=== PATIENT | female | born 2000 | race Caucasian/White ===

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

== ENCOUNTER 2021-03-18 06:51 | Emergency (ER) | payer OTHER, SELFPAY ==
--- NOTE | 2021-03-18 | ECG_ITS ---
Test Reason : cp Blood Pressure : / mmHG Vent. Rate : 071 BPM Atrial Rate : 071 BPM P-R Int : 154 ms QRS Dur : 082 ms QT Int : 394 ms P-R-T Axes : 059 067 048 degrees QTc Int : 428 ms Normal sinus rhythm RSR' or QR pattern in V1 suggests right ventricular conduction delay Otherwise normal ECG No previous ECGs available Referred By: Generic ED Physician Electronically Signed By:JIMMY RECINOS MD
--- NOTE | ~2021-03-18 | XR_ITS ---
EXAMINATION: XR CHEST CLINICAL INFORMATION: Chest pain COMPARISON: None TECHNIQUE: 2 views of the chest were obtained. FINDINGS: No significant abnormality is noted involving the heart, lungs, mediastinum, bony thorax or soft tissues. XR/XR chest 2V IMPRESSION: Unremarkable examination.
--- NOTE | 2021-03-18 07:07 | ED_ITS ---
HPI - Chest Pain General Chief Complaint: Chest Pain Stated Complaint: chest pain Time Seen by Provider: 03/18/21 07:06 Source: patient Mode of arrival: ambulatory Limitations: no limitations History of Present Illness HPI narrative: This is a 21 years old female with no past medical history presented to the emergency department complaining of a left-sided chest pain which started 2 days ago today's worse. The pain is described as a sharp pleuritic in nature without radiation localized in the left precordium. Denies any fevers chills shortness of breath. She was at work today pain got worse and she decided to come for evaluation complaint: chest pain Onset (ago): day(s) (2) Timing of current episode: constant Prior episodes: No Onset: during rest Pain location: substernal and left chest Pain radiation: none Severity: moderate Quality: sharp Relieving factors: nothing Exacerbating factors: inspiration Risk Factors Coronary artery disease risk factors: none Related Data On Oral Contraceptives: No Allergies Allergy/AdvReac Type Severity Reaction Status Date / Time No Known Allergies Allergy Verified 04/12/20 10:12 Review of Systems Review of Systems: Yes all other systems are reviewed and are negative Constitutional: Constitutional: Reports no additional constitutional complaints ENT: Denies vertigo and Denies dizziness Cardiovascular: Cardiovascular: Denies leg edema and Denies lightheadedness Respiratory: Respiratory: Denies chest congestion, Denies cough, Denies hemoptysis and Reports pain on inspiration Gastrointestinal: Gastrointestinal: Denies coffee ground emesis and Denies vomiting Neurologic: Reports system reviewed and no additional complaints, except as documented, Denies vertigo and Denies dizziness PMFSH Past Medical History Attestation statement: The following information was validated with the patient. Medical History (Updated 03/18/21 @ 07:14 by Maurizio Gonzales MD) Asthma Migraine with aura Surgical History H/O breast surgery Social History Social History Alcohol intake: never Patient Tobacco Use Status: Never used Tobacco Use of substances other than those prescribed or required for medical reasons: No Advance Directives: No Advance Directives Information Provided: No Physical Exam Vital Signs: Vital Signs: Last Vital Signs Pulse 76 03/18/21 07:10 Resp 14 03/18/21 07:10 BP 121/75 03/18/21 07:10 Pulse Ox 96 03/18/21 07:10 Body Mass Index 23.6 Const: General: cooperative, healthy appearing, comfortable, no acute distress and well developed Nutritional Appearance: average body habitus Orientat ion/consciousness: patient oriented x3 Limitations: no limitations HENMT: Head: Yes normal to inspection Face and sinus: Yes normal facial exam Mouth: Normal oral and palatal mucosa present Neck: Neck: Yes normal visual inspection, Yes full ROM and Yes no lymphadenopathy Thyroid: Thyroid normal Chest: Chest palpation & inspection: normal inspection of the chest Resp: Effort & Inspection: normal respiratory effort Auscultation: clear to auscultation bilaterally Cardio: Jugular venous distension: no JVD Palpation: normal PMI Rhythm: regular rhythm Heart sounds: S1 normal heart sound present and S2 normal heart sound present GI: Inspection: Yes normal to inspection Palpation (GI): Soft to palpation Skin: General skin exam: no rashes or lesions noted Neuro: General: patient oriented x3 Course Course Course Narrative: This is a low risk patient she has a negative chest x-ray, negative D-dimer and negative troponin she can be discharged home and follow-up with PCP her pain is most likely musculoskeletal MDM - Chest Pain Lab Data Result diagrams: 03/18/21 07:31 03/18/21 07:31 Labs: Lab Results 03/18/21 03/18/21 03/18/21 Range/Units 07:31 07:31 07:31 WBC 8.5 (4.8-10.8) X10*3/uL RBC 4.32 (4.20-5.50) X10*6/uL Hgb 12.6 (12.0-16.0) g/dl Hct 37.5 (37-47) % MCV 86.8 (80-98) fL MCH 29.2 (27.0-33.0) pg MCHC 33.6 (31.0-35.0) g/dl RDW 11.9 (11.0-16.0) % Plt Count 261 (160-400) X10*3/uL MPV 10.3 (9.4-12.3) fL Immature Gran % (Auto) 0.1 (0.0-0.4) % Neut % (Auto) 41.8 L (45-73) % Lymph % (Auto) 48.1 H (20-40) % [place] % (Auto) 7.3 (2-11) % Eos % (Auto) 2.5 (0-4) % Baso % (Auto) 0.2 (0-2) % Lymph # (Auto) 4.1 (1.2-4.9) X10*3/uL [place] # (Auto) 0.6 (0.1-1.2) X10*3/uL Eos # (Auto) 0.2 (0.0-0.4) X10*3/uL Baso # (Auto) 0.0 (0.0-0.2) X10*3/uL Abs Immat Gran (auto) 0.01 (0.00-0.03) X10*3/uL Absolute Neuts (auto) 3.6 (2.0-8.3) X10*3/uL Absolute Nucleated RBC 0.000 (0.0-0.012) X10*3/uL Nucleated RBC % (auto) 0.0 (0.0-0.2) /100WBC D-Dimer < 200 NG/ML Sodium 139 (135-145) mmol/L Potassium 3.9 (3.3-5.1) mmol/L Chloride 106 (96-108) mmol/L Carbon Dioxide 25 (22-29) mmol/L Anion Gap 12 (12-20) BUN 15 (9-16) mg/dL Creatinine 0.76 (0.5-1.4) mg/dL Estim Creat Clear Calc 89.1 Estimated GFR > 60 Random Glucose 99 (60-115) mg/dL Calcium 9.7 (8.4-10.2) mg/dL Total Bilirubin 0.2 (0.0-1.0) mg/dL AST 13 (5-31) U/L ALT 10 (0-31) U/L Alkaline Phosphatase 91 (39-117) U/L Troponin I High Sens (<3.5-17.0) ng/L Total Protein 7.6 (6.5-8.0) g/dL Albumin 4.4 (3.5-5.0) g/dL 03/18/21 Range/Units 07:31 WBC (4.8-10.8) X10*3/uL RBC (4.20-5.50) X10*6/uL Hgb (12.0-16.0) g/dl Hct (37-47) % MCV (80-98) fL MCH (27.0-33.0) pg MCHC (31.0-35.0) g/dl RDW (11.0-16.0) % Plt Count (160-400) X10*3/uL MPV (9.4-12.3) fL Immature Gran % (Auto) (0.0-0.4) % Neut % (Auto) (45-73) % Lymph % (Auto) (20-40) % [place] % (Auto) (2-11) % Eos % (Auto) (0-4) % Baso % (Auto) (0-2) % Lymph # (Auto) (1.2-4.9) X10*3/uL [place] # (Auto) (0.1-1.2) X10*3/uL Eos # (Auto) (0.0-0.4) X10*3/uL Baso # (Auto) (0.0-0.2) X10*3/uL Abs Immat Gran (auto) (0.00-0.03) X10*3/uL Absolute Neuts (auto) (2.0-8.3) X10*3/uL Absolute Nucleated RBC (0.0-0.012) X10*3/uL Nucleated RBC % (auto) (0.0-0.2) /100WBC D-Dimer NG/ML Sodium (135-145) mmol/L Potassium (3.3-5.1) mmol/L Chloride (96-108) mmol/L Carbon Dioxide (22-29) mmol/L Anion Gap (12-20) BUN (9-16) mg/dL Creatinine (0.5-1.4) mg/dL Estim Creat Clear Calc Estimated GFR Random Glucose (60-115) mg/dL Calcium (8.4-10.2) mg/dL Total Bilirubin (0.0-1.0) mg/dL AST (5-31) U/L ALT (0-31) U/L Alkaline Phosphatase (39-117) U/L Troponin I High Sens < 3.5 (<3.5-17.0) ng/L Total Protein (6.5-8.0) g/dL Albumin (3.5-5.0) g/dL Imaging Data Chest x-ray: Radiologist's impression: Accession Number(s): [id number] cc: Maurizio Gonzales MD~ EXAMINATION: XR CHEST CLINICAL INFORMATION: Chest pain COMPARISON: None TECHNIQUE: 2 views of the chest were obtained. FINDINGS: No significant abnormality is noted involving the heart, lungs, mediastinum, bony thorax or soft tissues. XR/XR chest 2V IMPRESSION: Unremarkable examination. Dictated By: Shazia Cortes MD Signed By: <Electronically signed by Shazia Cortes MD in OV> 03/18/21 0756 ECG Data ECG #1: Attestation: I personally reviewed and interpreted this ECG as follows: ECG interpretation date: 03/18/21 ECG interpretation time: 07:12 Prior ECG tracings: available for review Pacemaker model: Normal sinus rhythm a rate [address]-T segment Discharge Plan Discharge Clinical Impression: Chest pain Patient Disposition: Home, Self-Care Instructions: Chest Pain (ED) Additional Instructions: take ibuprophen as needed follow up with your primary care doctor Referrals: Physician,Unknown J [Primary Care Provider] - 2 days Stand Alone Forms: Work/School Release Interventions: ED Discharge Assessment Last Done: 03/18/21 08:28 Discharge Date/Time: 03/18/21 08:30
[2021-03-18 07:10] VITALS: BP 121/75; PULSE 76; RESP 14; O2SAT 96; BMI 23.6
[2021-03-18] MEDS: Ibuprofen 600 MG TABLET PO (07:24)
[2021-03-18 07:48] LABS: MANUAL DIFF FLAG NO
[2021-03-18 07:56] LABS: Basophils Percent Auto 0.2 % (0-2); Eosinophils Absolute Auto 0.2 X10*3/uL (0.0-0.4); Eosinophils Percent Auto 2.5 % (0-4); Hematocrit 37.5 % (37-47); Hemoglobin 12.6 g/dl (12.0-16.0); Imm Gran Abs Auto 0.01 X10*3/uL (0.00-0.03); Imm Gran Pct Auto 0.1 % (0.0-0.4); Lymphocytes Absolute Auto 4.1 X10*3/uL (1.2-4.9); Lymphocytes Percent Auto 48.1 % (20-40); Mean Corpuscular HGB Conc 33.6 g/dl (31.0-35.0); Mean Corpuscular Hemoglobin 29.2 pg (27.0-33.0); Mean Corpuscular Volume 86.8 fL (80-98); Mean Platelet Volume 10.3 fL (9.4-12.3); Monocytes Absolute Auto 0.6 X10*3/uL (0.1-1.2); Monocytes Percent Auto 7.3 % (2-11); Neutrophils Absolute Auto 3.6 X10*3/uL (2.0-8.3); Neutrophils Percent Auto 41.8 % (45-73); Platelet Count 261 X10*3/uL (160-400); Red Blood Count 4.32 X10*6/uL (4.20-5.50); Red Cell Distribution Width 11.9 % (11.0-16.0); White Blood Count 8.5 X10*3/uL (4.8-10.8)
[2021-03-18 07:59] LABS: D Dimer < 200 NG/ML
[2021-03-18 08:15] LABS: Alanine Aminotransferase 10 U/L (0-31); Albumin Level 4.4 g/dL (3.5-5.0); Alkaline Phosphatase 91 U/L (39-117); Anion Gap 12 (12-20); Aspartate Amino Transferase 13 U/L (5-31); Bilirubin Total 0.2 mg/dL (0.0-1.0); Blood Urea Nitrogen 15 mg/dL (9-16); Calcium 9.7 mg/dL (8.4-10.2); Carbon Dioxide 25 mmol/L (22-29); Chloride 106 mmol/L (96-108); Creatinine Clr Calc Pharmacy 89.1; Estimated Glomerular Filt Rate > 60; Glucose Random 99 mg/dL (60-115); Potassium 3.9 mmol/L (3.3-5.1); Sodium 139 mmol/L (135-145); Total Protein 7.6 g/dL (6.5-8.0)
[2021-03-18 08:19] LABS: Troponin-I High Sensitivity < 3.5 ng/L (<3.5-17.0)
== END 2021-03-18 08:30 | disposition home or self-care (01) ==
PROVIDERS: Emergency Provider Emergency Medicine
DX: R07.89 Other chest pain (principal); R06.02 Shortness of breath; Z79.899 Other long term (current) drug therapy
CPT/HCPCS: 36415; 71046; 80053; 84484; 85025; 85379; 93005; 99283; 99284

== ENCOUNTER 2021-07-12 19:59 | Emergency (ER) | payer OTHER, SELFPAY ==
--- NOTE | ~2021-07-12 | XR_ITS ---
EXAMINATION: XR CHEST CLINICAL INFORMATION: Shortness of breath. COMPARISON: Chest radiograph dated from 03/18/2021. TECHNIQUE: 2 views of the chest were obtained. FINDINGS: No significant abnormality is noted involving the heart, lungs, mediastinum, bony thorax or soft tissues. XR/XR chest 2V IMPRESSION: Unremarkable examination.
[2021-07-12 20:18] VITALS: BP 131/77; PULSE 73; RESP 18; TEMP 36.7; O2SAT 98; BMI 23.6
[2021-07-12] MEDS: Acetaminophen 325 MG TABLET 650 MG PO (20:27)
== END 2021-07-12 22:22 | disposition left against medical advice (07) ==
PROVIDERS: Emergency Provider Emergency Medicine
DX: R06.02 Shortness of breath (principal); R42 Dizziness and giddiness
CPT/HCPCS: 71046; 99283

== ENCOUNTER 2021-11-06 08:19 | Emergency (ER) | payer OTHER, SELFPAY ==
--- NOTE | ~2021-11-06 | US_ITS ---
EXAMINATION: US ABDOMEN LIMITED CLINICAL INFORMATION: Right upper quadrant pain. COMPARISON: None TECHNIQUE: Real-time imaging of the right upper quadrant abdominal viscera. FINDINGS: PANCREAS: Normal. LIVER: Normal. The liver is normal in size. The liver contour is normal. Parenchymal echogenicity is normal. No focal hepatic lesion. There is no intrahepatic biliary duct dilatation seen. GALLBLADDER: Normal. The gallbladder is physiologically distended without evidence of stones, sludge, polyps, wall thickening or pericholecystic fluid. COMMON BILE DUCT: Normal in caliber measuring 0.2 cm in diameter. RIGHT KIDNEY: Normal. No hydronephrosis. No renal calculi or focal parenchymal lesions. The kidney measures 10.3 cm in maximum dimension. FREE FLUID: None. US/US abdomen limited IMPRESSION: Unremarkable right upper quadrant ultrasound.
[2021-11-06 09:08] LABS: MANUAL DIFF FLAG NO
[2021-11-06 09:09] LABS: Basophils Percent Auto 0.4 % (0-2); Eosinophils Absolute Auto 0.2 X10*3/uL (0.0-0.4); Eosinophils Percent Auto 2.1 % (0-4); Hematocrit 37.5 % (37.0-47.0); Hemoglobin 12.5 g/dl (12.0-16.0); Imm Gran Abs Auto 0.02 X10*3/uL (0.00-0.03); Imm Gran Pct Auto 0.3 % (0.0-0.4); Lymphocytes Absolute Auto 2.1 X10*3/uL (1.2-4.9); Lymphocytes Percent Auto 26.7 % (20-40); Mean Corpuscular HGB Conc 33.3 g/dl (31.0-35.0); Mean Corpuscular Hemoglobin 28.7 pg (27.0-33.0); Mean Platelet Volume 10.7 fL (9.4-12.3); Monocytes Absolute Auto 0.6 X10*3/uL (0.1-1.2); Monocytes Percent Auto 7.1 % (2-11); Neutrophils Absolute Auto 4.9 x10*3/uL (2.0-8.3); Neutrophils Percent Auto 63.4 % (45-73); Platelet Count 267 X10*3/uL (160-400); Red Blood Count 4.36 X10*6/uL (4.20-5.50); Red Cell Distribution Width 11.9 % (11.0-16.0); White Blood Count 7.7 X10*3/uL (4.8-10.8)
--- NOTE | 2021-11-06 09:13 | ED_ITS ---
HPI - Abdominal Pain General Chief Complaint: Abdominal Pain Stated Complaint: Upper abd pain Time Seen by Provider: 11/06/21 08:44 Source: patient Mode of arrival: ambulatory Limitations: no limitations History of Present Illness MD elicited complaint: abdominal pain Pertinent past history: none Onset (ago): week(s) (2) Pain Consistency: intermittent Location: epigastric and RUQ Severity: moderate Quality: aching Radiation: none Exacerbating factors: eating Relieving factors: nothing Context: other (started after trying milk ensure diet) Associated symptoms: nausea and vomiting Related Data Previous Rx's Medication Instructions Recorded omeprazole 20 mg capsule,delayed 20 mg PO BID 2 weeks #28 caps 11/06/21 release ondansetron 4 mg disintegrating 4 mg PO Q8H PRN nausea and 11/06/21 tablet vomiting #20 tabs Allergies Allergy/AdvReac Type Severity Reaction Status Date / Time No Known Allergies Allergy Verified 07/12/21 20:18 Review of Systems Review of Systems Constitutional : No Weight loss, No Fever, No Chills ENT/Mouth : No sore throat, No Rhinorrhea Eyes: No Swelling, No Redness Cardiovascular : No Chest Pain, No SOB, NoEdema Respiratory : No Cough, No Sputum, No Wheezing Gastrointestinal : Positive Nausea, Positive Vomiting, no Diarrhea, positive abdominal Pain, No Hematochezia, No Melena Genitourinary : No Dysuria, No Urinary Frequency, No Hematuria, No Urgency Musculoskeletal : No joint pain, No Myalgias, No Joint Swelling Skin : No Skin Lesions, No rash Neuro : No Weakness, No Numbness, No Dizziness, No Headache Psych : No Anxiety/Panic, No Depression Heme/Lymph: No Bruising, No Lymphadenopathy Endocrine : No Polyuria, No Polydipsia All other systems reviewed and are negative. [facility] Past Medical History Attestation statement: The following information was validated with the patient. Medical History Asthma Migraine with aura Surgical History H/O breast surgery Social History Social History Alcohol intake: never Patient Tobacco Use Status: Never used Tobacco Use of substances other than those prescribed or required for medical reasons: No Advance Directives: No Advance Directives Information Provided: No Physical Exam ED Vital Signs: Vital Signs - 24 hr 11/06/21 09:14 11/06/21 09:15 11/06/21 09:21 Temperature 98.4 F 97.9 F Pulse Rate 90 72 72 Respiratory Rate 18 16 16 Blood Pressure 98/66 133/75 130/77 Pulse Oximetry 95 99 100 Oxygen Delivery Method Room Air Room Air Room Air BMI result Body Mass Index 25.4 Appearance: Alert. Oriented X3. No acute distress. Eyes: Pupils equal, round and reactive to light. ENT: Pharynx normal. Neck: Normal inspection. Neck supple. CVS: Normal heart rate and rhythm. Pulses normal. Respiratory: No respiratory distress. Breath sounds normal. Abdomen: Soft and mild epigastric RUQ pain but no matson's sign Skin: Skin warm and dry. Normal skin color. Normal skin turgor. Extremities: No lower extremity edema. No calf ttp Neuro: Oriented X 3. No motor deficit. No sensory deficit. Course Course Course Narrative: not toxic, no vomiting stable for DC MDM - Abdominal Pain MDM Narrative Medical decision making narrative: 21 yo female with no PMH here with c/o upper abdominal pain and vomiting post ensure diet - at this time will need labs, US of GB - IVF and IV medications - dispo per results and findings possible gastritis vs IBS. Lab Data Result diagrams: 11/06/21 09:03 11/06/21 09:03 Labs: Lab Results 11/06/21 11/06/21 11/06/21 Range/Units 09:03 09:03 09:09 WBC 7.7 (4.8-10.8) X10*3/uL RBC 4.36 (4.20-5.50) X10*6/uL Hgb 12.5 (12.0-16.0) g/dl Hct 37.5 (37.0-47.0) % MCV 86.0 (80.0-98.0) fL MCH 28.7 (27.0-33.0) pg MCHC 33.3 (31.0-35.0) g/dl RDW 11.9 (11.0-16.0) % Plt Count 267 (160-400) X10*3/uL MPV 10.7 (9.4-12.3) fL Immature Gran % (Auto) 0.3 (0.0-0.4) % Neut % (Auto) 63.4 (45-73) % Lymph % (Auto) 26.7 (20-40) % [place] % (Auto) 7.1 (2-11) % Eos % (Auto) 2.1 (0-4) % Baso % (Auto) 0.4 (0-2) % Lymph # (Auto) 2.1 (1.2-4.9) X10*3/uL [place] # (Auto) 0.6 (0.1-1.2) X10*3/uL Eos # (Auto) 0.2 (0.0-0.4) X10*3/uL Baso # (Auto) 0.0 (0.0-0.2) X10*3/uL Abs Immat Gran (auto) 0.02 (0.00-0.03) X10*3/uL Absolute Neuts (auto) 4.9 (2.0-8.3) x10*3/uL Absolute Nucleated RBC 0.000 (0.0-0.012) X10*3/uL Nucleated RBC % (auto) 0.0 (0.0-0.2) /100WBC Sodium 139 (135-145) mmol/L Potassium 4.2 (3.3-5.1) mmol/L Chloride 108 (96-108) mmol/L Carbon Dioxide 23 (22-29) mmol/L Anion Gap 12 (12-20) BUN 10 (9-16) mg/dL Creatinine 0.76 (0.5-1.4) mg/dL Estim Creat Clear Calc 94.8 Estimated GFR > 60 Random Glucose 92 (60-115) mg/dL Calcium 9.3 (8.4-10.2) mg/dL Magnesium 1.9 (1.6-2.6) mg/dL Total Bilirubin 0.2 (0.0-1.0) mg/dL Direct Bilirubin < 0.2 (0.0-0.5) mg/dL AST 13 (5-31) U/L ALT 13 (0-31) U/L Alkaline Phosphatase 86 (39-117) U/L Total Protein 7.5 (6.5-8.0) g/dL Albumin 4.2 (3.5-5.0) g/dL Lipase 15 (8-78) U/L Urine Color YELLOW Urine Appearance HAZY Urine pH 6.5 (5.0-8.0) Ur Specific [place] 1.020 (1.005-1.025) Urine Protein NEG (NEG-TRACE) MG/DL Urine Glucose (UA) NEG (NEG) MG/DL Urine Ketones NEG (NEG) MG/DL Urine Blood 2+ H (NEG) Urine Nitrite NEG (NEG) Ur Leukocyte Esterase 1+ H (NEG) Urine RBC 1-4 (0) /HPF Urine WBC 1-4 (0-4) /HPF Ur Squamous Epith Cells 1+ /LPF Urine Bacteria NONE /LPF Urine Test (NEGATIVE) 11/06/21 Range/Units 09:09 WBC (4.8-10.8) X10*3/uL RBC (4.20-5.50) X10*6/uL Hgb (12.0-16.0) g/dl Hct (37.0-47.0) % MCV (80.0-98.0) fL MCH (27.0-33.0) pg MCHC (31.0-35.0) g/dl RDW (11.0-16.0) % Plt Count (160-400) X10*3/uL MPV (9.4-12.3) fL Immature Gran % (Auto) (0.0-0.4) % Neut % (Auto) (45-73) % Lymph % (Auto) (20-40) % [place] % (Auto) (2-11) % Eos % (Auto) (0-4) % Baso % (Auto) (0-2) % Lymph # (Auto) (1.2-4.9) X10*3/uL [place] # (Auto) (0.1-1.2) X10*3/uL Eos # (Auto) (0.0-0.4) X10*3/uL Baso # (Auto) (0.0-0.2) X10*3/uL Abs Immat Gran (auto) (0.00-0.03) X10*3/uL Absolute Neuts (auto) (2.0-8.3) x10*3/uL Absolute Nucleated RBC (0.0-0.012) X10*3/uL Nucleated RBC % (auto) (0.0-0.2) /100WBC Sodium (135-145) mmol/L Potassium (3.3-5.1) mmol/L Chloride (96-108) mmol/L Carbon Dioxide (22-29) mmol/L Anion Gap (12-20) BUN (9-16) mg/dL Creatinine (0.5-1.4) mg/dL Estim Creat Clear Calc Estimated GFR Random Glucose (60-115) mg/dL Calcium (8.4-10.2) mg/dL Magnesium (1.6-2.6) mg/dL Total Bilirubin (0.0-1.0) mg/dL Direct Bilirubin (0.0-0.5) mg/dL AST (5-31) U/L ALT (0-31) U/L Alkaline Phosphatase (39-117) U/L Total Protein (6.5-8.0) g/dL Albumin (3.5-5.0) g/dL Lipase (8-78) U/L Urine Color Urine Appearance Urine pH (5.0-8.0) Ur Specific [place] (1.005-1.025) Urine Protein (NEG-TRACE) MG/DL Urine Glucose (UA) (NEG) MG/DL Urine Ketones (NEG) MG/DL Urine Blood (NEG) Urine Nitrite (NEG) Ur Leukocyte Esterase (NEG) Urine RBC (0) /HPF Urine WBC (0-4) /HPF Ur Squamous Epith Cells /LPF Urine Bacteria /LPF Urine Test NEGATIVE (NEGATIVE) Discharge Plan Discharge Clinical Impression: Gastritis Qualifiers: Gastritis type: unspecified gastritis Chronicity: acute Gastritis bleeding: without bleeding Qualified Code(s): K29.00 - Acute gastritis without bleeding Patient Disposition: Home, Self-Care Instructions: Gastritis (ED) Additional Instructions: return to ED for any worsening symptoms or concerns labs and US normal go back to normal diet avoid spicy and greasy foods at this time Prescriptions: New ondansetron 4 mg tablet,disintegrating 4 mg PO Q8H PRN (Reason: nausea and vomiting) Qty: 20 0RF omeprazole 20 mg capsule,delayed release(DR/EC) 20 mg PO BID 14 Days Qty: 28 0RF Referrals: Stewart Bear MD [Physician] - 2 weeks (if symptoms continue) Stand Alone Forms: Work/School Release
[2021-11-06 09:14] VITALS: BP 98/66; PULSE 90; RESP 18; TEMP 36.9; O2SAT 95; BMI 33.8
[2021-11-06 09:15] VITALS: BP 133/75; PULSE 72; RESP 16; TEMP 36.6; O2SAT 99; BMI 25.4
[2021-11-06 09:21] VITALS: BP 130/77; PULSE 72; RESP 16; O2SAT 100
[2021-11-06 09:24] LABS: Appearance Urine HAZY; Color Urine YELLOW; Glucose Urine UA NEG (NEG); Leukocyte Esterase Urine 1+ (NEG); Nitrite Urine NEG (NEG); PH 6.5 (5.0-8.0); UACC Culture Trigger YES; Urine Blood 2+ (NEG); Urine Ketones NEG (NEG); Urine Protein NEG (NEG-TRACE)
[2021-11-06 09:26] LABS: UPreg QC Valid YES; Urine Pregnancy NEGATIVE (NEGATIVE)
[2021-11-06] MEDS: ondansetron HCL 4 MG/2 ML VIAL IVPUSH (09:31)
[2021-11-06] MEDS: Ketorolac Tromethamine 15 MG/ML VIAL 30 MG IVPUSH (09:31)
[2021-11-06] MEDS: 0.9 % Sodium Chloride 1,000 ML 999 ML IV (09:31)
[2021-11-06] MEDS: Famotidine/PF 20 MG/2 ML VIAL IVPUSH (09:31)
[2021-11-06 09:32] LABS: Squamous Epithelial Cell Urine 1+ /LPF
[2021-11-06 09:33] LABS: Alanine Aminotransferase 13 U/L (0-31); Albumin Level 4.2 g/dL (3.5-5.0); Alkaline Phosphatase 86 U/L (39-117); Anion Gap 12 (12-20); Aspartate Amino Transferase 13 U/L (5-31); Bilirubin Direct < 0.2 mg/dL (0.0-0.5); Bilirubin Total 0.2 mg/dL (0.0-1.0); Blood Urea Nitrogen 10 mg/dL (9-16); Calcium 9.3 mg/dL (8.4-10.2); Carbon Dioxide 23 mmol/L (22-29); Chloride 108 mmol/L (96-108); Creatinine Clr Calc Pharmacy 94.8; Estimated Glomerular Filt Rate > 60; Glucose Random 92 mg/dL (60-115); Lipase 15 U/L (8-78); Magnesium 1.9 mg/dL (1.6-2.6); Potassium 4.2 mmol/L (3.3-5.1); Sodium 139 mmol/L (135-145); Total Protein 7.5 g/dL (6.5-8.0)
== END 2021-11-06 11:01 | disposition home or self-care (01) ==
PROVIDERS: Emergency Provider Emergency Medicine
DX: K29.00 Acute gastritis without bleeding (principal); R10.9 Unspecified abdominal pain
CPT/HCPCS: 36415; 76705; 80048; 80076; 81001; 81025; 83690; 83735; 85025; 87086; 96361; 96374; 96375; 99284; J1885; J2405

== ENCOUNTER 2021-12-04 11:18 | Emergency (ER) | payer OTHER, SELFPAY ==
[2021-12-04 11:21] VITALS: BP 118/66; PULSE 73; RESP 18; TEMP 36.6; O2SAT 98; BMI 23.4
[2021-12-04 12:10] LABS: MANUAL DIFF FLAG NO
[2021-12-04 12:13] LABS: UPreg QC Valid YES; Urine Pregnancy NEGATIVE (NEGATIVE)
[2021-12-04 12:14] LABS: Appearance Urine CLEAR; Color Urine YELLOW; Glucose Urine UA NEG (NEG); Leukocyte Esterase Urine NEG (NEG); Nitrite Urine NEG (NEG); PH 6.5 (5.0-8.0); UACC Culture Trigger NO; Urine Blood 3+ (NEG); Urine Ketones NEG (NEG); Urine Protein NEG (NEG-TRACE)
[2021-12-04 12:17] LABS: Basophils Percent Auto 0.3 % (0-2); Eosinophils Percent Auto 0.4 % (0-4); Hematocrit 36.1 % (37.0-47.0); Hemoglobin 12.3 g/dl (12.0-16.0); Imm Gran Abs Auto 0.02 X10*3/uL (0.00-0.03); Imm Gran Pct Auto 0.2 % (0.0-0.4); Lymphocytes Absolute Auto 1.6 X10*3/uL (1.2-4.9); Lymphocytes Percent Auto 17.1 % (20-40); Mean Corpuscular HGB Conc 34.1 g/dl (31.0-35.0); Mean Corpuscular Hemoglobin 28.7 pg (27.0-33.0); Mean Corpuscular Volume 84.1 fL (80.0-98.0); Monocytes Absolute Auto 0.5 X10*3/uL (0.1-1.2); Monocytes Percent Auto 5.2 % (2-11); Neutrophils Percent Auto 76.8 % (45-73); Platelet Count 252 X10*3/uL (160-400); Red Blood Count 4.29 X10*6/uL (4.20-5.50); White Blood Count 9.2 X10*3/uL (4.8-10.8)
[2021-12-04 12:26] LABS: Alanine Aminotransferase 14 U/L (0-31); Albumin Level 4.4 g/dL (3.5-5.0); Alkaline Phosphatase 94 U/L (39-117); Anion Gap 11 (12-20); Aspartate Amino Transferase 14 U/L (5-31); Bilirubin Direct 0.2 mg/dL (0.0-0.5); Bilirubin Total 0.4 mg/dL (0.0-1.0); Blood Urea Nitrogen 10 mg/dL (9-16); Calcium 9.2 mg/dL (8.4-10.2); Carbon Dioxide 23 mmol/L (22-29); Chloride 107 mmol/L (96-108); Creatinine Clr Calc Pharmacy 88.2; Estimated Glomerular Filt Rate > 60; Glucose Random 102 mg/dL (60-115); Lipase 13 U/L (8-78); Sodium 137 mmol/L (135-145); Total Protein 7.7 g/dL (6.5-8.0)
[2021-12-04 12:27] LABS: Amorphous Sediment Urine 2+ /LPF; Squamous Epithelial Cell Urine 1+ /LPF
[2021-12-04 12:28] LABS: Hyaline Casts Urine 0-2 /LPF; RBC Urine 0-2 /HPF (0); WBC Urine 0-2 /HPF (0-4)
[2021-12-04 12:29] LABS: Bacteria Urine TRACE /LPF
== END 2021-12-04 17:28 | disposition left against medical advice (07) ==
PROVIDERS: Emergency Provider Emergency Medicine
DX: K29.71 Gastritis, unspecified, with bleeding (principal); K92.0 Hematemesis; Z79.899 Other long term (current) drug therapy
CPT/HCPCS: 36415; 80048; 80076; 81001; 81025; 83690; 85025; 99282; 99283

== ENCOUNTER 2022-05-23 07:34 | Emergency (ER) | payer OTHER, SELFPAY ==
[2022-05-23 07:40] VITALS: BP 124/76; PULSE 68; RESP 18; TEMP 36.6; O2SAT 98; BMI 27.3
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
[2022-05-23 08:48] LABS: Appearance Urine Clear; Color Urine Yellow; Glucose Urine UA Negative (Negative); Leukocyte Esterase Urine Negative (Negative); Nitrite Urine Negative (Negative); PH 5.5 (5.0-9.0); Specific Gravity - Urine >= 1.030 (1.005-1.025); Urine Blood Negative (Negative); Urine Ketones Negative (Negative); Urine Protein Negative (Neg-Trace)
[2022-05-23 08:50] LABS: UPreg QC Valid YES; Urine Pregnancy NEGATIVE (NEGATIVE)
[2022-05-23] MEDS: Ibuprofen 400 MG TABLET PO (08:58)
[2022-05-23] MEDS: Acetaminophen 325 MG TABLET 975 MG PO (08:58)
[2022-05-23 09:19] LABS: COVID-19 Test Negative (Negative); IDNOW Serial# BCCEAD1C
[2022-05-23 09:26] LABS: IDNOW Serial# 16C4AD1C; Influenza A Negative (Negative); Influenza B2 Negative (Negative)
[2022-05-23 11:19] VITALS: BP 121/78; PULSE 79; RESP 16; TEMP 36.7; O2SAT 97
== END 2022-05-23 11:41 | disposition home or self-care (01) ==
PROVIDERS: Emergency Provider Student in an Organized Health Care Education/Training Program; PCP Physician Assistant
DX: Z04.2 Encounter for examination and observation following work accident (principal); R51.9 Headache, unspecified
CPT/HCPCS: 81003; 81025; 87502; 87635; 99283

== ENCOUNTER 2024-06-28 10:43 | Emergency (ER) | payer MEDICAID, SELFPAY ==
--- NOTE | ~2024-06-28 | US_ITS ---
CLINICAL HISTORY: sob, ? dvt Bilateral lower extremity venous ultrasound. Findings: The deep venous system is normally compressible. There is color and spectral Doppler flow. Impression: No DVT is identified. This document has been electronically signed by: Kendrick Levy MD on 06/28/2024 18:34:51
--- NOTE | ~2024-06-28 | US_ITS ---
CLINICAL HISTORY: ? ectopic Early OB ultrasound. Findings: There is an intrauterine . Estimated gestational age 8 weeks 1 day. Estimated due date 02/02/2025. Heart rate 169 beats per minute. The right ovary is unremarkable. Left ovary not seen. No significant free fluid is identified. Impression: Single live intrauterine as described. This document has been electronically signed by: Kendrick Levy MD on 06/28/2024 18:33:34
[2024-06-28 10:59] VITALS: BP 139/64; PULSE 87; RESP 18; TEMP 36.6; O2SAT 100; BMI 28.4
[2024-06-28 12:02] LABS: MANUAL DIFF FLAG NO
[2024-06-28 12:03] LABS: Basophils Percent Auto 0.2 % (0-2); Eosinophils Absolute Auto 0.1 X10*3/uL (0.0-0.4); Eosinophils Percent Auto 0.9 % (0-4); Hematocrit 36.2 % (37.0-47.0); Hemoglobin 12.8 g/dl (12.0-16.0); Imm Gran Abs Auto 0.03 X10*3/uL (0.00-0.03); Imm Gran Pct Auto 0.3 % (0.0-0.4); Lymphocytes Absolute Auto 2.1 X10*3/uL (1.2-4.9); Mean Corpuscular HGB Conc 35.4 g/dl (31.0-35.0); Mean Corpuscular Hemoglobin 29.1 pg (27.0-33.0); Mean Corpuscular Volume 82.3 fL (80.0-98.0); Mean Platelet Volume 10.5 fL (9.4-12.3); Monocytes Absolute Auto 0.7 X10*3/uL (0.1-1.2); Monocytes Percent Auto 7.4 % (2-11); Neutrophils Percent Auto 67.2 % (45-73); Platelet Count 278 X10*3/uL (160-400); Red Cell Distribution Width 12.1 % (11.0-16.0); White Blood Count 8.9 X10*3/uL (4.8-10.8)
[2024-06-28 12:12] LABS: UPreg QC Valid YES; Urine Pregnancy POSITIVE (NEGATIVE)
[2024-06-28 12:13] LABS: Appearance Urine Cloudy; Color Urine Dark Yellow; Glucose Urine UA Negative (Negative); Leukocyte Esterase Urine Small (1+) (Negative); Nitrite Urine Negative (Negative); PH 5.5 (5.0-9.0); Specific Gravity - Urine >= 1.030 (1.005-1.025); UMIC TRIGGER UACC YES; Urine Blood Negative (Negative); Urine Ketones Trace mg/dL (Negative); Urine Protein 30 (1+) mg/dL (Neg-Trace)
[2024-06-28 12:32] LABS: Bacteria Urine 2+ (None Seen); Hyaline Casts Urine 0-2 /LPF (0-2); RBC Urine 0-2 /HPF (0-2); UACC Culture Trigger YES; WBC Urine 0-5 /HPF (0-5)
[2024-06-28 12:35] LABS: Alanine Aminotransferase 35 U/L (0-31); Albumin Level 4.2 g/dL (3.5-5.0); Alkaline Phosphatase 81 U/L (39-117); Anion Gap 11 (12-20); Aspartate Amino Transferase 18 U/L (5-31); Bilirubin Total 0.3 mg/dL (0.0-1.0); Blood Urea Nitrogen 7 mg/dL (9-16); Calcium 8.9 mg/dL (8.4-10.2); Carbon Dioxide 22 mmol/L (22-29); Chloride 107 mmol/L (96-108); Creatinine Clr Calc Pharmacy 123.5; Estimated Glomerular Filt Rate > 60; Glucose Random 91 mg/dL (60-115); Potassium 3.5 mmol/L (3.3-5.1); Sodium 136 mmol/L (135-145)
[2024-06-28 12:57] LABS: HCG Quantitative 155398 mIU/mL
--- NOTE | 2024-06-28 17:13 | ED.GENADULT ---
HPI - General Adult General Chief complaint: General Medical Stated complaint: SOB Time Seen by Provider: 06/28/24 16:22 History of Present Illness HPI narrative: Patient is a 24-year-old female first-time . Patient complaining of some coughing upper respiratory symptoms had some nausea vomiting earlier. No fever no chills. No new leg swelling. Patient does have a family history of having blood clots grandmother had a blood clot and diaphragm a clot. Patient denies any history travel. She is from home. 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 Coughing is productive some clear sputum. Has a history of asthma has inhalers at home has minimal abdominal pain in the lower abdomen but never had an ultrasound for this . Patient is from home no diaphoresis. Related Data Previous Rx's ?Medication ?Instructions ?Recorded omeprazole 20 mg capsule,delayed 20 mg PO BID 2 weeks #28 caps 11/06/21 release ondansetron 4 mg disintegrating 4 mg PO Q8H PRN nausea and 11/06/21 tablet vomiting #20 tabs Allergies Allergy/AdvReac Type Severity Reaction Status Date / Time No Known Allergies Allergy Verified 06/28/24 11:02 Review of Systems Review of Systems: No fever no chills no chest pain positive coughing Yes all other systems are reviewed and are negative PMFSH Past Medical History Medical History Asthma Migraine with aura Surgical History H/O breast surgery Social History Social History Alcohol intake: never Patient Tobacco Use Status: Never used Tobacco Use of substances other than those prescribed or required for medical reasons: No Advance Directives: No Advance Directives Information Provided: No Do you have a plan to hurt others: No Plan Patient : No Physical Exam ED Vital Signs: Vital Signs - 24 hr 06/28/24 10:59 06/28/24 18:30 Temperature 97.8 F 98.2 F Pulse Rate 87 80 Respiratory Rate 18 18 Blood Pressure 139/64 116/61 Pulse Oximetry 100 97 Oxygen Delivery Method Room Air Room Air BMI result Body Mass Index 28.4 Appearance: Alert. Oriented X3. No acute distress. Eyes: Pupils equal, round and reactive to light. ENT: Pharynx normal. Neck: Normal inspection. Neck supple. No lymph nodes noted. No crepitus CVS: Normal heart rate and rhythm. Pulses normal. Normal S1 and S2 Respiratory: No respiratory distress. Breath sounds normal. No Wheezing. No rales Abdomen: Soft and nontender. No rigidity. No distention. good BS x4 Skin: Skin warm and dry. Normal skin color. Normal skin turgor. Extremities: No lower extremity edema. Neurovascular intact to all extremities. No Lacerations. No Rash Neuro: Oriented X 3. No motor deficit. No sensory deficit. Moving all extermities. No slurred speech Medications Administered Discontinued Medications Generic Name Dose Route Start Last Admin Trade Name Freq PRN Reason Stop Dose Admin Sodium Chloride 1,000 mls @ 999 mls/hr 06/28/24 17:15 06/28/24 17:35 Ns IV 06/28/24 18:15 999 mls/hr .Q1H1M PHIL Administration Medical Decision Making Medical Decision Making [facility] Narrative: Patient well appearing no acute distress. Lungs are clear bilaterally. Legs are not swollen. Patient's oxygen saturation is 100% on room air she is in her 1st trimester of . Approximately 8 weeks . Patient's history more consistent with upper respiratory infection. There is no hemoptysis. Patient history not consistent with PE. Nevertheless Doppler ultrasound of the lower extremity was ordered. Patient will also get an ultrasound to rule out the possibility of ectopic. COVID flu RSV were all negative. Will give IV fluids for dehydration. Patient is white count is normal hemoglobin is 12.8 there is no evidence for anemia. Patient's electrolytes were normal. LFTs are normal. Quant was 155,000 consistent with an 8 week . Patient's urine more consistent with contamination no gross infection. Has follow-up with OBGYN on an outpatient basis. Differential Diagnosis Differential Diagnoses: The differential diagnosis associated with the presentation includes Ectopic , DVT, flu, COVID, RSV Admission/Observation Consideration of admission/observation: Escalation of care including admission/observation considered Patient's ultrasound shows an IUP. Legs showed no evidence of DVT no need for admission at this time. Lab Data [facility] Lab Attestation statement: I reviewed the patient's lab results. 06/28/24 11:57 06/28/24 11:57 Labs: Lab Results 06/28/24 06/28/24 Range/Units 11:57 12:01 WBC 8.9 (4.8-10.8) X10*3/uL RBC 4.40 (4.20-5.50) X10*6/uL Hgb 12.8 (12.0-16.0) g/dl Hct 36.2 L (37.0-47.0) % MCV 82.3 (80.0-98.0) fL MCH 29.1 (27.0-33.0) pg MCHC 35.4 H (31.0-35.0) g/dl RDW 12.1 (11.0-16.0) % Plt Count 278 (160-400) X10*3/uL MPV 10.5 (9.4-12.3) fL Immature Gran % (Auto) 0.3 (0.0-0.4) % Neut % (Auto) 67.2 (45-73) % Lymph % (Auto) 24.0 (20-40) % Wilcox % (Auto) 7.4 (2-11) % Eos % (Auto) 0.9 (0-4) % Baso % (Auto) 0.2 (0-2) % Lymph # (Auto) 2.1 (1.2-4.9) X10*3/uL Wilcox # (Auto) 0.7 (0.1-1.2) X10*3/uL Eos # (Auto) 0.1 (0.0-0.4) X10*3/uL Baso # (Auto) 0.0 (0.0-0.2) X10*3/uL Abs Immat Gran (auto) 0.03 (0.00-0.03) X10*3/uL Absolute Neuts (auto) 6.0 (2.0-8.3) x10*3/uL Absolute Nucleated RBC 0.000 (0.0-0.012) X10*3/uL Nucleated RBC % (auto) 0.0 (0.0-0.2) /100WBC Sodium 136 (135-145) mmol/L Potassium 3.5 (3.3-5.1) mmol/L Chloride 107 (96-108) mmol/L Carbon Dioxide 22 (22-29) mmol/L Anion Gap 11 L (12-20) BUN 7 L (9-16) mg/dL Creatinine 0.60 (0.5-1.4) mg/dL Estim Creat Clear Calc 123.5 Estimated GFR > 60 Random Glucose 91 (60-115) mg/dL Calcium 8.9 (8.4-10.2) mg/dL Magnesium 2.0 (1.6-2.6) mg/dL Total Bilirubin 0.3 (0.0-1.0) mg/dL AST 18 (5-31) U/L ALT 35 H (0-31) U/L Alkaline Phosphatase 81 (39-117) U/L Total Protein 8.0 (6.5-8.0) g/dL Albumin 4.2 (3.5-5.0) g/dL Beta HCG, Quant [id number] mIU/mL Urine Color Dark Yellow Urine Appearance Cloudy Urine pH 5.5 (5.0-9.0) Ur Specific [place] >= 1.030 H (1.005-1.025) Urine Protein 30 (1+) H (Neg-Trace) mg/dL Urine Glucose (UA) Negative (Negative) mg/dL Urine Ketones Trace (Negative) mg/dL Urine Blood Negative (Negative) Urine Nitrite Negative (Negative) Ur Leukocyte Esterase Small (1+) H (Negative) Urine RBC 0-2 (0-2) /HPF Urine WBC 0-5 (0-5) /HPF Ur Squamous Epith Cells 11-20 (0-2) /HPF Urine Bacteria 2+ (None Seen) Hyaline Casts 0-2 (0-2) /LPF Urine Test POSITIVE H (NEGATIVE) Independent Interpretation I performed an independent interpretation of an: Ultrasound (No DVT noted.) Radiology Impression Discussion of test interpretation with radiology: I have reviewed the radiologist's reading. Chronic Conditions Social Determinants Patient?s care significantly limited by Social Determinants of Health including: Problems related to primary support group Discharge Plan Discharge Clinical Impression: Acute upper respiratory infection Patient Disposition: Home, Self-Care Instructions: Upper Respiratory Infection (DC) Prescriptions: No Action ondansetron 4 mg tablet,disintegrating 4 mg PO Q8H PRN (Reason: nausea and vomiting) Qty: 20 0RF omeprazole 20 mg capsule,delayed release(DR/EC) 20 mg PO BID 14 Days Qty: 28 0RF Referrals: Misti Arnett PA-C [Primary Care Provider] - 06/30/24 Print Language: Haitian
--- OUTSIDE RECORDS SUMMARY | 2024-06-28 17:27 | XMS_ITS | Clinical Summary ---
Author Organization [facility] Address [address] [place] [address] Care Team Providers Care Audio Visual Equipment Rental Clerk Name Role Phone Misti Arnett PA-C Primary Care Provider Source Comments PLEASE NOTE, if this patient is a minor, it may be UNLAWFUL to discuss sensitive information that is contained in these records (such as FAMILY PLANNING, MENTAL HEALTH or SUBSTANCE ABUSE) with the minor patient's parent or other person without the patient's specific authorization.[facility] Allergies No known active allergies Medications diphenhydrAMINE (BENADRYL) 25 mg capsuleIndicati ons:Anxiety and depression Take 1 Capsule by mouth every 6 (six) hours as needed for itching 90 Capsule 01/03/2023 Active desogestreL-eth inyl estradioL (APRI) 0.15-0.03 mg tabletIndicatio ns: control counseling Take 1 Tablet by mouth once daily for 364 days 90 Tablet 3 06/26/2023 Active Active Problems Problem Noted Date Diagnosed Date Migraine without status migrainosus 05/16/2020 Hx of removal of cyst 05/16/2020 Overview (05/16/2020): 2017 Right breast cyst removal. Benign Sprain 05/16/2020 Overview (05/16/2020): Right ACLS sprain 2019 Anxiety and depression 05/16/2020 Mild intermittent asthma without complication Overview (05/16/2020): Well controlled. Has Albuterol as a PRN Immunizations Name Administration Dates Next Due Flu, Preservative Free 07/16/2022,03/20/2018 HPV 9 (Gardasil) 07/16/2022,05/15/2020 Hep A, Ped/adol, 2 Dose 01/12/2016 Hep B,adult,adjuvanted (HEPLISAV) 07/22/2022 INFLUENZA, SEASONAL, INJECTA BLE, PRESERVATIVE FREE 02/13/2017,02/24/2015 MENINGOCOCCAL B, RECOMBINANT 01/27/2018,02/14/20 17 MENINGOCOCCAL MCV4O (MENVEO) 02/04/2019 MODERNA COVID-19 VACCINE BIV ALENT, BLUE CAP, 6M+ 07/16/2022 Moderna COVID-19 Vaccine, re d cap blue label, 12+ Primary Series 05/24/2021,10/17/2020,09/19/2020 TDAP 02/04/2019 Family History Medical History Relation Name Comments Diabetes Brother No Known Problems Father Cancer Maternal Grandfather No Known Problems Mother Relation Name Status Comments Brother Alive Father Alive Cyst in right b reast, was removed Maternal Grandfather breast cancer Mother Alive Social History Tobacco Use Types Packs/Day Years Used Date Smoking Tobacco: Never Smokeless Tobacco: Never Tobacco Cessation:Counseling Given: Not Answered Alcohol Use Standard Drinks/Week Comments Never 0 (1 standard drink = 0.6 oz pur e alcohol) Social Connections Answer Date Recorded Connectedness 0 01/03/2023 Financial Resource Strain Answer Date R ecorded Financial Resource Strain 0 2022 Stress Answer Date Recorded Stress 0 01/03/2023 Physical Activity Answer Date Recorded Physical Activity 0 05/15/2020 Food Insecurity Answer Date Recorded Food 0 01/03/2023 Transportation Needs Answer Date Record ed Transportation 0 01/03/2023 Housing Stability Answer Date Recorded Housing 0 01/03/2023 Safety and Environment Answer Date Griffin rded Safety 0 01/03/2023 Utilities Answer Date Recorded Utilities 0 01/03/2023 Employment Answer Date Recorded Employment 0 05/15/2020 Comments No Sex and Gender Information Value Date Recorded Sex Assigned at Female 05/15/2020 6:37 AM PST Legal Sex Female 9:06 AM PDT Gender Identity Female 05/15/2020 6:37 AM PST Sexual Orientation Straight 05/15/2020 6: 37 AM PST Last Filed Vital Signs Vital Sign Reading Time Taken Comments Blood Pressure 124/73 06/26/2023 9:03 AM EST Pulse 79 06/26/2023 9:03 AM EST Temperature 36.9 ??C (98.4 ??F) 06/26/2023 9:03 AM ES T Respiratory Rate 16 06/26/2023 9:03 AM EST Oxygen Saturation 98% 06/26/2023 9:03 AM EST Inhaled Oxygen Concentration - - Weight 66.1 kg (145 lb 12.8 oz) 06/26/2023 9:03 AM EST Height 154.9 cm (5' 1 ) 06/26/2023 9:03 AM EST Body Mass Index 27.55 06/26/2023 9:03 AM EST Plan of Treatment Health Maintenance Due Date Last Done Comments HPV Screening 2001 Pap + HPV 2001 Imm-Varicella (1 of 2 - 13+ 2-dose series) 2014 Imm-Pneumococcal (1 of 2 - PCV) 01/21/2020 Chlamydia Screening 05/15/2021 05/15/2020 Gonorrhea Screening 05/15/2021 05/15/2020 Cervical Cancer Screening 2022 Pap Smear 2022 Imm-Hepatitis B (2 of 2 - Cp G 2-dose series) 08/19/2022 07/22/2022 Imm-HPV (3 - 3-dose series) 10/08/2022 07/16/2022, 1 07/16/2019 Depression Monitoring 04/05/2023 01/03/2023 , 10/14/2022, 07/16/2022, Additional history exists Diabetes Screening 05/15/2023 05/15/2020 Annual Preventive Care Visit 07/16/2023 07/16/2022, 05/15/2020 Relationship Safety Screening/Counseling 01/04/2024 01/03/2023, 07/16/2022, 05/15/2020 [id number] ( season) 2024 07/16/2022, 05/24/2021, 10/17/2020, Additional history exists Imm-Influenza (#1) 2024 07/16/2022, 1 , 02/13/2017, Additional history exists Alcohol and Drug Screen 05/26/2024 01/04/20, 07/16/2022, 12/13/2020, Additional history exists Hypertension Screening (#1) 06/25/2024 Tobacco Screening 06/26/2024 Imm-DTaP/Tdap/Td (2 - Td or Tdap) 02/04/2029 019 Hepatitis C Screening Completed 05/15/2020 HIV Screening Completed 02/15/2021, 05/15/2020 Cervical Ablation/Cold-Knife Conization Discontinued Cervical Cryotherapy Discontinued Colposcopy Discontinued Endometrial Biopsy Discontinued Excision/Leep Discontinued HPV Genotyping Discontinued Vaginal Pap Discontinued Vulvoscopy Discontinued Procedures Procedure Name Priority Date/Time Associated Diagnosis Comments HIV 1/2 AG & AB W/RFLX (4TH GEN) Routine 02/15/2021 10:51 AM EDT Screen for STD (sexually transmitted disease) Unprotected sex HEPATITIS C ANTIBODY Routine 05/15/2020 11:17 AM EST Routine adult health maintenance GC DNA PROBE, URINE Routine 05/15/2020 1 1:17 AM EST Routine adult health maintenance COMPREHENSIVE METABOLIC PANEL Routine 05/15/2020 11:17 AM EST Routine adult health maintenance CHLAMYDIA DNA PROBE, URINE Routine 05/15/2020 11:17 AM EST Routine adult health maintenance from Last 3 Months or Most Recently Relevant to Health Maintenance Results * HIV 1/2 AG & AB W/RFLX (4TH GEN) (02/15/2021 10:51 AM EDT) HIV AG/AB, 4TH GEN NON-REAC TIVE NON-REAC TIVE [place] [facility] Comment: HIV-1 antigen and HIV-1/HIV-2 antibodies were not detected. There is no laboratory evidence of HIV infection. PLEASE NOTE: This information has been disclosed to you from records whose confidentiality may be protected by state law. ??If your state requires such protection, then the state law prohibits you from making any further disclosure of the information without the specific written consent of the person to whom it pertains, or as otherwise permitted by law. A general authorization for the release of medical or other information is NOT sufficient for this purpose. ?? For additional information please refer to http://education.[employer]/faq/MOD804 (This link is being provided for informational/ educational purposes only.) The performance of this assay has not been clinically validated in patients less than 2 years old. Blood Blood / Unknown 02/15/2021 1 0:51 AM EDT 02/15/2021 10:51 AM EDT Ivon Atikns PA-C LAB - BLOOD DRAW Final Result [place] [facility] [address] [address], [place] [address] [address] * GC DNA PROBE, URINE (05/15/2020 11:17 AM EST) GC DNA URINE NEGATIVE NEGATIVE [facility] Urine Urine specimen / Unknown 05/15/2020 11:17 AM EST 05/15/2020 1:46 PM EST Narrative [facility] - 05/22/2020 2:14 PM EST [employer], [place] [address] Roll Line Operator - Lanie Swift MD PT ID [id number] ORD# [id number] Misti Arnett PA-C LAB - NO BLOOD DRAW Final Re sult [address] [address], * (ABNORMAL) CHLAMYDIA DNA PROBE, URINE (05/15/2020 11:17 AM EST) CHLAMYDIA DNA URINE POSITIVE(A ) NEGATIVE [facility] Urine Urine specimen / Unknown 05/15/2020 11:17 AM EST 05/15/2020 1:46 PM EST [facility] 05/22/2020 2:14 PM EST [employer] [address] Roll Line Operator - Lanie Swift MD PT ID [id number] ORD# [id number] Misti Arnett PA-C LAB - NO BLOOD DRAW Final Re sult Performing Organization Address City/[facility]/ZIP Co de Phone Number [address] [address], [place] [phone] * HEPATITIS C ANTIBODY (05/15/2020 11:17 AM EST) Pathologist [facility] [place] HEPATITIS C VIRUS SCREEN NEGATIVE NEGATIVE [facility] Blood Blood / Unknown 05/15/2020 1 1:17 AM EST 05/15/2020 1:46 PM EST [facility] - 05/15/2020 4:53 PM EST [employer], a member of [address] [address] Roll Line Operator - Lanie Swift MD PT ID [id number] ORD# [id number] Misti Arnett PA-C LAB - BLOOD DRAW Final Resul t Performing Organization Address [facility] Co de Phone Number [address] [address], [place] [phone] * (ABNORMAL) COMPRE METAB PANEL (05/15/2020 11:17 AM EST) GLUCOSE 77 70 - 100 mg/dL [facility] Comment:Reference range appl icable to fasting specimens only BUN 15 5 - 25 mg/dL [facility] CREAT 0.81 0.5 - 1.1 mg/dL [facility] GLOMERULAR FILTRATION RATE > 60 [facility] Comment: If patient is -Central African, multiply result by 1.21 Chronic Kidney Disease: < 60 ml/min/1.73 square meters Kidney Failure: < 15 ml/min/1.73 square meters SODIUM 138 135 - 145 mEq/L [facility] POTASSIUM 3.8 3.5 - 5.5 mmol/L [facility] CHLORIDE 104 96 - 110 mmol/L [facility] CO2 28 21 - 32 mmol/L [facility] ANION GAP 6 3 - 11 [facility] CALCIUM 9.6 8.5 - 10.5 mg/dL [facility] TOTAL PROTEIN 8.6(H) 6.0 - 8.0 G/dL [facility] ALBUMIN 4.4 3.2 - 5.0 G/dL [facility] BILI, TOTAL 0.5 0.0 - 1.4 mg/dL [facility] SGOT 14 10 - 42 U/L [facility] ALK PHOS 106 42 - 121 U/L [facility] SGPT 21 10 - 60 U/L [facility] Blood Blood / Unknown 05/15/2020 1 1:17 AM EST 05/15/2020 1:46 PM EST Narrative [facility] - 05/15/2020 4:06 PM EST [employer], [place] [address] Roll Line Operator - Lanie Swift MD PT ID [id number] ORD# [id number] Misti Arentt PA-C LAB - BLOOD DRAW [place] [address], from Last 3 Months or Most Recently Relevant to Health Maintenance Insurance [place] [employer] [facility] Care Teams Audio Visual Equipment Rental Clerk Relationship Specialty Start Date End Date Misti Arnett PA-C [address] [place] [id number] PCP - General Internal Medicine 05/05/20
[2024-06-28] MEDS: 0.9 % Sodium Chloride 1,000 ML 999 ML IV (17:35)
[2024-06-28 18:30] VITALS: BP 116/61; PULSE 80; RESP 18; TEMP 36.8; O2SAT 97
--- NOTE | 2024-06-28 18:59 | PC.NURSE ---
Took over care from COREY Correia, pt resting in bed awaiting disposition.
--- NOTE | 2024-06-28 19:08 | PC.NURSE ---
Reviewed discharge instructions with pt. pt verbalized understanding no sign of distress, pt able to ambulate with a steady gait, no pain upon discharge.
[2024-06-28 19:09] VITALS: BP 116/61; PULSE 80; RESP 18; TEMP 36.8; O2SAT 97
== END 2024-06-28 19:10 | disposition home or self-care (01) ==
PROVIDERS: Emergency Provider Emergency Medicine Emergency Medical Services; PCP Physician Assistant
DX: O21.9 Vomiting of pregnancy, unspecified (principal); O26.891 Other specified pregnancy related conditions, first trimester; J06.9 Acute upper respiratory infection, unspecified; R05.9 Cough, unspecified; Z3A.08 8 weeks gestation of pregnancy; Z03.818 Encounter for observation for suspected exposure to other biological agents ruled out
CPT/HCPCS: 36415; 76801; 76817; 80053; 81001; 81025; 83735; 84702; 85025; 87086; 93970; 96360; 96361; 99284

== ENCOUNTER → 2024-06-28 17:11 | Outpatient (BNV) | payer MEDICAID, SELFPAY | PROVIDERS: Emergency Provider Emergency Medicine Emergency Medical Services; PCP Physician Assistant; Visit Provider Radiology Diagnostic Radiology | DX: R06.02 Shortness of breath (principal) | CPT/HCPCS: 93970 ==